=== PATIENT | female | born 1955 | race Caucasian/White ===

== ENCOUNTER → 2016-12-03 | Outpatient (CLI) | payer OTHER ==
[~2016-12-03] MED LIST: PENI500T2 PO; POLY335040 PO; SENNTAB23 PO
--- NOTE | 2016-12-03 15:37 | MAMMOGRAPHY REPORT ---
BILATERAL DIGITAL SCREENING MAMMOGRAM TOMOSYNTHESIS WITH CAD: 12/03/2016 CLINICAL HISTORY: Routine screening. Patient has no complaints. TECHNIQUE: Breast tomosynthesis in addition to standard 2D mammography was performed. Current study was also evaluated with a Computer Aided Detection (CAD) system. COMPARISON: Comparison is made to exams dated: 08/17/2014 mammogram, 07/03/2013 mammogram, 05/24/2012 mammogram, 11/25/2010 ultrasound, 10/30/2010 mammogram - [facility], and 04/16/2008. BREAST COMPOSITION: The tissue of both breasts is heterogeneously dense, which may obscure small ma sses. FINDINGS: There is architectural distortion seen within the right upper inner quadrant, best seen on the tomos ynthesis images, for which spot compression tomosynthesis views and possible breast ultrasound are r ecommended for further evaluation. Additionally, there is a small 7 mm nodular asymmetry seen withi n the left lateral anterior breast on the cc view, possibly projecting at approximately 3:00 on the MLO view, for which spot compression tomosynthesis views and possible breast ultrasound are recommen ded. The remainder of both breasts are stable compared to prior exams, without suspicious masses, calcifi cations, or areas of architectural distortion noted. IMPRESSION: ACR BI-RADS CATEGORY 0: INCOMPLETE EVALUATION: NEED ADDITIONAL IMAGING EVALUATION Right breast architectural distortion and left breast asymmetry, for which additional imaging evalua tion is recommended. The patient will be called to schedule an appointment. Approximately 10% of breast cancers are not detected with mammography. A negative mammographic repor t should not delay biopsy if a clinically suggestive mass is present. Daysi Gonzalez M.D. ah/:12/03/2016 15:17:19 [employer]: Emeli Laurent RT(R)(M), [facility] letter sent: Addl Imaging 0 BI-RADS Code: ACR BI-RADS Category 0: Incomplete Evaluation: Need Additional Imaging Evaluation
== END | disposition home or self-care (01) ==
LOC: C.MAMM 13:53
PROVIDERS: ATTEND Family Medicine
DX: Z12.31 Encounter for screening mammogram for malignant neoplasm of breast (principal); N64.89 Other specified disorders of breast

== ENCOUNTER → 2016-12-18 | Outpatient (CLI) | payer OTHER ==
--- NOTE | 2016-12-18 13:11 | MAMMOGRAPHY REPORT ---
BILATERAL DIGITAL DIAGNOSTIC MAMMOGRAM TOMOSYNTHESIS WITH CAD AND TARGETED LEFT ULTRASOUND: 7 CLINICAL HISTORY: Callback from screening mammogram for right breast distortion and left breast asym metry. The patient reports a prior right breast surgical excision which was benign. TECHNIQUE: Breast tomosynthesis in addition to standard 2D mammography was performed. Current study was also evaluated with a Computer Aided Detection (CAD) system. Spot compression bilateral CC and MLO tomosynthesis images including C views were obtained. COMPARISON: Comparison is made to exams dated: 12/03/2016 mammogram, 08/17/2014 mammogram, 07/03/2013 m ammogram, 05/24/2012 mammogram, 11/25/2010 ultrasound, and 10/30/2010 mammogram - [facility]. BREAST COMPOSITION: The tissue of both breasts is heterogeneously dense, which may obscure small ma sses. FINDINGS: A linear scar marker was placed at the site of the surgical scar and spot compression vie ws were obtained. A linear scar marker is located at the site of the architectural distortion in th e right upper inner quadrant. Therefore, the architectural distortion is benign and most compatible with postsurgical changes. The previously seen nodular 7 mm asymmetry seen within the left lateral anterior breast effaces to a baseline appearance on the spot compression views, without a suspicious mass or other suspicious ma mmographic abnormality evident in this region on the additional images. Targeted ultrasound was performed of the left lateral periareolar breast in the region of the mammog raphic asymmetry. A few scattered round/oval anechoic circumscribed masses were noted during the ex am, consistent with cysts, including a 5 mm cyst in the left breast at 3:00, 4 cm from the nipple, a 3 mm cyst in the left breast at 2:30, 5 cm from the nipple, and a 4 x 4 mm cyst in the left breast at 2:30, 5 cm from the nipple. No suspicious solid masses were evident. IMPRESSION: ACR BI-RADS CATEGORY 2: BENIGN, TARGETED ULTRASOUND ACR BI-RADS CATEGORY 2: BENIGN 1. The right breast architectural distortion is benign and most compatible with postsurgical change s from prior surgical excision. 2. The left breast asymmetry effaces on the additional views, without corresponding suspicious sono graphic abnormality evident. The asymmetry is benign and felt to represent normal overlapping fibro glandular tissue. There is no mammographic or targeted sonographic evidence of malignancy. A 1 year screening mammogra m is recommended. The patient has been verbally notified of the results. Approximately 10% of breast cancers are not detected with mammography. A negative mammographic repor t should not delay biopsy if a clinically suggestive mass is present. Daysi Gonzalez M.D. ah/:12/18/2016 11:56:10 [employer]: Iliana ALVES(Bebe)(Karen), [facility] letter sent: Normal 1/2 BI-RADS Code: ACR BI-RADS Category 2: Benign Ultrasound BI-RADS: ACR BI-RADS Category 2: Benign
== END | disposition home or self-care (01) ==
LOC: C.MAMM 10:27
PROVIDERS: ATTEND Family Medicine
DX: R92.8 Other abnormal and inconclusive findings on diagnostic imaging of breast (principal)